=== PATIENT | female | born 1970 | race Caucasian/White ===

== ENCOUNTER 2016-09-12 08:22 | Outpatient (CLI) | payer OTHER ==
--- NOTE | 2016-09-12 11:33 | DIAGNOSTIC IMAGING REPORT ---
PROCEDURE: MG BILATERAL SCREENING W/CAD INDICATION: Screening. Family history breast carcinoma (aunt). History of bilateral breast reduction surgery (age 37). TECHNIQUE: Bilateral CC and MLO digital views. COMPARISON: Compared to prior studies from [facility] on 01/25/2015. FINDINGS: Computer-aided detection applied. Mildly dense with a few dystrophic calcifications. . There is a 9 mm focal asymmetry in the lateral right breast. The rest of the breasts are unchanged. IMPRESSION: 1. There is a 9 mm focal asymmetry in the lateral right breast which may be located in the lower outer quadrant. While this may represent normal asymmetric tissue, underlying mass or architectural distortion should be considered. Further mammographic views (true lateral view, CC and MLO spot compression views) are recommended. In addition, right breast ultrasound is recommended. RESULT CODE: 0- Incomplete; needs additional evaluation. A. A negative report should not delay biopsy if a dominant or clinically suspicious mass is present. 10-15% of cancers are not identified by x-ray. B. A negative report may reinforce clinical impression. C. Adenosis and dense breasts may obscure an underlying neoplasm. D. False positive reports average 6-10%. E.. A yearly screening mammogram is recommended. A reminder letter will be scheduled.
== END 2016-09-12 23:00 ==
LOC: MAM SRH 08:22
DX: Z12.31 Encounter for screening mammogram for malignant neoplasm of breast (principal); Z80.3 Family history of malignant neoplasm of breast

== ENCOUNTER → 2016-09-21 | Outpatient (CLI) | payer OTHER ==
--- NOTE | 2016-09-21 16:57 | DIAGNOSTIC IMAGING REPORT ---
PROCEDURE: MG UNILATERAL DIAG-RT W/CAD INDICATION: Follow-up right breast asymmetric density. TECHNIQUE: True lateral digital view of the right breast. In addition, spot compression CC and MLO views were obtained of the lateral and lower outer right breast (region of clinical concern). Finally, high-resolution right breast ultrasound was performed (18 mHz). COMPARISON: Comparison made to screening mammogram on 09/12/2016 FINDINGS: MAMMOGRAM: Computer-aided detection applied. Mildly dense parenchymal pattern. Findings are compatible with normal asymmetric parenchyma. No evidence of mass or architectural distortion. BREAST ULTRASOUND: Normal parenchyma. No evidence of mass or cyst. IMPRESSION: 1. Negative mammogram and negative right breast ultrasound. 2. Findings discussed with the patient. 3. Resume routine screening schedule (September 2017). RESULT CODE: 1- Negative. A. A negative report should not delay biopsy if a dominant or clinically suspicious mass is present. 10-15% of cancers are not identified by x-ray. B. A negative report may reinforce clinical impression. C. Adenosis and dense breasts may obscure an underlying neoplasm. D. False positive reports average 6-10%. E.. A yearly screening mammogram is recommended. A reminder letter will be scheduled.
== END ==
LOC: MAM SRH 09-18 08:26
DX: N64.89 Other specified disorders of breast (principal)